=== PATIENT | female | born 1960 | race Caucasian/White ===

== ENCOUNTER 2019-05-01 01:03 | Day surgery (SDC) | payer OTHER, SELFPAY ==
[2019-04-23 14:24] VITALS: BMI 31.2
--- NOTE | 2019-05-01 10:49 | WPDANESEPPF ---
Anes - Initial Pre Proc Eval Procedure: Operation Date: 05/01/19 13:00 Proposed Procedures p Screening Colonoscopy - Magen Pinto MD Date/Time: 05/01/19 10:49 Surgeon: Magen Pinto MD Pre Op Diagnosis: Neoplasm Screening Patient Data Age: 58 Gender: F Height: 5 ft 3 in Weight: 80 kg Allergies Allergy/AdvReac Type Severity Reaction Status Date / Time PENICILLIN Allergy Mild UNKNOWN Uncoded 03/28/19 15:48 Home Medications Medication Instructions Recorded Confirmed Type conj estrogen-medroxyprogesterone 1 tablet PO DAILY 03/07/19 04/23/19 History 0.45 mg-1.5 mg tablet hydrochlorothiazide 12.5 mg tablet 12.5 mg PO DAILY 03/07/19 04/23/19 History nystatin 100,000 unit/gram topical 1 applic TOPICAL DAILY 03/07/19 04/23/19 History cream olmesartan 20 mg tablet 20 mg PO DAILY 03/07/19 04/23/19 History sodium,potassium,mag sulfates 17.5 480 ml PO .COMPLEX #354 ml 03/31/19 Rx gram-3.13 gram-1.6 gram oral soln Patient hx anesthesia problems: none Family hx anesthesia problems: none PMFSH Past Medical History Medical History GERD (gastroesophageal reflux disease) HLD (hyperlipidemia) Hypertension Mammogram normal (~2015) Shingles (~2005) Family History Family History Father No problems noted. Mother Cancer of kidney Sibling No problems noted. Social History Social History Smoking status: Never smoker Second hand tobacco smoke exposure: No Alcohol intake: never Substance use: never Anes - Eval Final PreProcedure Day of Procedure 05/01/19 10:49 Patient weight: obese Heart: regular rate and rhythm Lungs: clear to auscultation Airway: Mallampati scale class II Neurological: alert and oriented Last oral intake: >/= 8 hours ASA classification: II Emergent: no Anesthetic plan: proceed Anesthesia type and monitoring: general GIVS and standard monitoring Informed Consent: The patient's anesthetic plan and its attendant risks and benefits were discussed with the patient/family/POA. Questions were solicited and answers provided to the satisfaction of the patient/family/POA.
[2019-05-01 11:45] VITALS: BP 147/80; RESP 16; TEMP 36.6; O2SAT 100; BMI 32.1
[2019-05-01] MEDS: LACTATED RINGERS 1,000 ML 150 ML IV CONT (12:05)
--- NOTE | 2019-05-01 13:33 | PM.HPGS ---
History of Present Illness History of Present Illness Consent: Risks, benefits, and alternatives have been discussed and questions answered. Patient agrees to proceed with procedure. Chief complaint: Neoplasm Screening Narrative: Talat Bills is a 58 year old female here for screening colonoscopy, first one. Review of Systems Constitutional: Constitutional: Denies headache(s) and Denies weakness Eyes: Eyes: Denies blurry vision ENT: Denies Normal hearing present, Denies headache(s) and Denies neck pain Cardiovascular: Cardiovascular: Denies chest pain and Denies dyspnea Respiratory: Respiratory: Denies dyspnea Gastrointestinal: Gastrointestinal: Reports no additional gastrointestinal complaints Genitourinary: Genitourinary: Denies dysuria Musculoskeletal: Musculoskeletal: Denies neck pain Integumentary/Breasts: Skin/Breast: Denies dry skin Neurologic: Reports Normal hearing present, Denies headache(s) and Denies weakness Psychiatric: Psychiatric: Denies anxiety Endocrine: Endocrine: Denies change in body appearance Hematologic/Lymphatic: Hematologic/Lymphatic: Denies easy bleeding Allergic/Immunologic: Allergic/Immunologic: Denies urticaria PMFSH Past Medical History Medical History GERD (gastroesophageal reflux disease) HLD (hyperlipidemia) Hypertension Mammogram normal (~2015) Shingles (~2005) Family History Family History Father No problems noted. Mother Cancer of kidney Sibling No problems noted. Social History Social History Smoking status: Never smoker Second hand tobacco smoke exposure: No Alcohol intake: never Substance use: never Meds Home Medications and Allergies Home Medications Medication Instructions Recorded Confirmed Type conj estrogen-medroxyprogesterone 1 tablet PO DAILY 03/07/19 05/01/19 History 0.45 mg-1.5 mg tablet hydrochlorothiazide 12.5 mg tablet 12.5 mg PO DAILY 03/07/19 05/01/19 History olmesartan 20 mg tablet 20 mg PO DAILY 03/07/19 05/01/19 History Allergies Allergy/AdvReac Type Severity Reaction Status Date / Time PENICILLIN Allergy Mild UNKNOWN Uncoded 05/01/19 11:41 Vital Signs Vital Signs - 24 hr 05/01/19 11:45 Temperature 97.8 F Respiratory Rate 16 Blood Pressure 147/80 H Pulse Oximetry 100 Exam Const: General: comfortable and no acute distress HENMT: Ears: hearing grossly impaired General nose exam: Normal nares present Eyes: General: appearance normal, both eyes and all related structures Neck: Neck: no JVD Resp: Auscultation: clear to auscultation bilaterally Cardio: Rate: regular rate Rhythm: regular rhythm GI: Inspection: non-distended GI Palp: Yes Soft to palpation Skin: General skin exam: normal color Neuro: General: gait normal Speech: normal speech Extrem: General: normal to inspection Psych: Mental Status: mental status grossly normal Assessment and Plan Assessment and plan (1) Colon cancer screening: Code(s): Z12.11 - Encounter for screening for malignant neoplasm of colon Status: Acute Assessment and Plan: will proceed with colonoscopy (2) Hypertension: Qualifiers: Hypertension type: essential hypertension Qualified Code(s): I10 - Essential (primary) hypertension Code(s): I10 - Essential (primary) hypertension Status: Acute
[2019-05-01 13:38] VITALS: BP 84/45; PULSE 68; RESP 23; O2SAT 100
[2019-05-01 13:48] VITALS: BP 103/52; PULSE 58; RESP 23; O2SAT 100
[2019-05-01 13:58] VITALS: BP 125/68; PULSE 56; RESP 22; O2SAT 100
== END 2019-05-01 14:20 | disposition home or self-care (01) ==
PROVIDERS: PCP Family Medicine; Visit Provider Internal Medicine Gastroenterology
PROC: 0DJD8ZZ Inspection of Lower Intestinal Tract, Via Natural or Artificial Opening Endoscopic (ICD-10-PCS; CPT 45378; principal; 2019-05-01 13:00)
DX: Z12.11 Encounter for screening for malignant neoplasm of colon (principal); K63.5 Polyp of colon; K64.8 Other hemorrhoids; I10 Essential (primary) hypertension; E78.5 Hyperlipidemia, unspecified; K21.9 Gastro-esophageal reflux disease without esophagitis; E66.9 Obesity, unspecified; Z68.32 Body mass index [BMI] 32.0-32.9, adult
CPT/HCPCS: 45380; 88305; J2704; J7120

== ENCOUNTER 2019-10-16 23:00 | Emergency (ER) | payer OTHER, SELFPAY ==
[2019-10-16 23:04] VITALS: BP 165/87; PULSE 70; RESP 14; TEMP 36.6; O2SAT 98
[2019-10-16] MEDS: methylPREDNISolone SOD SUCC 125 MG VIAL IV PUSH (23:42)
[2019-10-16] MEDS: FAMOTIDINE 20 MG/2 ML VIAL IV PUSH (23:43)
[2019-10-16] MEDS: diphenhydrAMINE HCl INJ 50 MG/ML VIAL 25 MG IV PUSH (23:43)
--- NOTE | 2019-10-17 00:26 | ED.ALLEREA ---
HPI - Allergic Reaction General Chief complaint: Allergic Reaction Stated complaint: allergic reaction Time Seen by Provider: 10/16/19 23:21 History of Present Illness HPI narrative: Patient is a 59-year-old female who presents ER with allergic reaction. Reports her eyes started to become puffy and red and she is developed rash to her cheeks and neck. She reports that she has chronic issues with dermatitis and occasionally needs steroids. Last reaction like this was 1 month ago. She is supposed to go to [facility] to get a more thorough work-up. She has no difficulty breathing or swallowing. She reports the skin feels like it is burning on her face. Related Data Home Medications Medication Instructions Recorded Confirmed conj estrogen-medroxyprogesterone 1 tablet PO DAILY 03/07/19 05/01/19 0.45 mg-1.5 mg tablet olmesartan 20 mg tablet 20 mg PO DAILY 03/07/19 05/01/19 Allergies Allergy/AdvReac Type Severity Reaction Status Date / Time Penicillins Allergy Unknown Unknown Verified 08/25/19 16:01 PENICILLIN Allergy Mild UNKNOWN Uncoded 07/04/19 11:21 Review of Systems Review of Systems: All systems reviewed & are unremarkable except as noted in HPI and below Constitutional: Constitutional: Denies chills, Denies fever(s) and Denies weakness ENT: Denies dysphagia, Denies nasal congestion and Denies sore throat Respiratory: Respiratory: Denies cough, Denies dyspnea and Denies wheezing Integumentary/Breasts: Skin/Breast: Reports pruritus, Reports erythema and Reports rash PMFSH Past Medical History Medical History (Updated 10/17/19 @ 01:09 by Thong Ochoa MD) Colon cancer screening GERD (gastroesophageal reflux disease) HLD (hyperlipidemia) Hypertension Mammogram normal (~2015) Normal colonoscopy (~2019) Shingles (~2005) Surgical History Surgical History (Updated 10/17/19 @ 00:28 by Thong Ochoa MD) History of cochlear implant Social History Social History Smoking status: Never smoker Second hand tobacco smoke exposure: No Alcohol intake: never Substance use: never Exam Narrative: Exam Narrative: GENERAL: Well-appearing, well-nourished, and in no acute distress. HEAD: Normocephalic, atraumatic. EYES: PERRL and EOMI. periorbital edema with erythema blanching extending down to the cheeks bilaterally. ENT: Mucous membranes moist. No edema to the lips or tongue. NECK: Supple. Red rash to the neck bilaterally extending into the skin folds and central neck. CHEST: Clear to auscultation. No respiratory distress. HEART: Regular rate and rhythm. Normal peripheral pulses. EXTREMITIES: Normal range of motion. No edema. NEURO: Alert and oriented x3. PSYCH: Normal mood and affect. Course Course Emergency Course: Improvement of redness and swelling with Benadryl/Pepcid/Solu-Medrol. Discharge home with same medications prescribed. Vital Signs Vital signs: Vital Signs Temperature 97.8 F 10/16/19 23:04 Pulse Rate 70 10/16/19 23:04 Respiratory Rate 14 10/16/19 23:04 Blood Pressure 165/87 H 10/16/19 23:04 Pulse Oximetry 98 10/16/19 23:04 Temperature 97.8 F 10/16/19 23:04 Pulse Rate 70 10/16/19 23:04 Respiratory Rate 14 10/16/19 23:04 Blood Pressure 165/87 H 10/16/19 23:04 Pulse Oximetry 98 10/16/19 23:04 Discharge Plan Discharge Clinical Impression: Allergic reaction Patient Disposition: Home, Self-Care Condition: Stable Instructions: General Allergic Reaction (ED) Additional Instructions: Return to the ER if he cannot breathe, you cannot swallow, you have chest pain or shortness of breath, you have additional concerns. Take Benadryl/Pepcid/steroids to help with your skin reaction. Prescriptions: New prednisone 50 mg tablet 50 mg PO DAILY Qty: 7 RF: 0 diphenhydramine HCl [Benadryl Allergy] 25 mg tablet 25 mg PO Q6H PRN (Reason: allergy symptoms) Qt
[2019-10-17 01:28] VITALS: BP 132/70; PULSE 88; RESP 18; O2SAT 98
== END 2019-10-17 01:29 | disposition home or self-care (01) ==
PROVIDERS: Emergency Provider Emergency Medicine; PCP Family Medicine
DX: T78.40XA Allergy, unspecified, initial encounter (principal); K21.9 Gastro-esophageal reflux disease without esophagitis; E78.5 Hyperlipidemia, unspecified; I10 Essential (primary) hypertension
CPT/HCPCS: 96374; 96375; 99284; J1200; J2930

== ENCOUNTER 2020-09-02 21:10 | Emergency (ER) | payer OTHER, SELFPAY ==
--- NOTE | ~2020-09-02 | CT_ITS ---
EXAMINATION: CT abdomen pelvis w con EXAM DATE: 09/03/2020 00:34 INDICATION: Low abdominal pain. TECHNIQUE: Spiral CT of the abdomen and pelvis was performed following intravenous injection of 100 m L Omnipaque 350. Axial, coronal and sagittal images of the abdomen and pelvis were reviewed. The do se-length product (DLP) for this examination was 334.34 mGy-cm. The exposure was tailored according to patient size (auto mA exposure control), and iterative reconstruction (ASIR) was used as additiona l dose reduction technique. Comparison is made to prior examination from 07/12/2017. FINDINGS: The liver, spleen, adrenal glands and pancreas are unremarkable. Gallbladder is unremarkab le. No biliary obstruction. Portal and splenic veins are patent. Kidneys enhance symmetrically. T here is no hydronephrosis. The uterus is unremarkable. There is a 2.2 cm right renal cyst. The otf dder is unremarkable. There is no retroperitoneal or pelvic lymphadenopathy. The appendix is normal. The stomach and small bowel are unremarkable. The colon is moderately diste nded with gas and also small amount of fluid. No colonic wall thickening or pneumatosis. No free in traperitoneal gas. The heart is normal in size. There are no pericardial or pleural effusions. Th e lung bases are unremarkable. The bones are unremarkable. IMPRESSION: Moderately distended colon with gas and small amount of fluid, nonspecific. Gastroenterit is? Reviewed, dictated and finalized at location A. IMPRESSION: Moderately distended colon with gas and small amount of fluid, nons pecific. Gastroenteritis?
[2020-09-02 21:47] VITALS: BP 99/83; PULSE 87; RESP 15; TEMP 37.1; O2SAT 99
[2020-09-02 22:04] LABS: Hematocrit 43.5 % (37.0-47.0); Hemoglobin 14.6 g/dL (12.0-15.0); Mean Corpuscular HGB Conc 33.6 g/dl (32-36); Mean Corpuscular Hemoglobin 30.9 pg (26-34); Mean Corpuscular Volume 92.2 fl (80-100); Mean Platelet Volume 11.7 fl (7.4-10.4); Platelet Count Result 171 k/mm3 (150-375); Red Blood Count 4.72 M/mm3 (4.2-5.4); Red Cell Distribution Width 11.9 % (11.5-14.5); White Blood Count 11.7 K/mm3 (4.5-10.0)
[2020-09-02 22:17] LABS: Alanine Aminotransferase 22 U/L (4-35); Albumin Level 3.8 g/dL (3.5-5.1); Alkaline Phosphatase 87 U/L (38-126); Anion Gap 11 mmol/L (8-16); Aspartate Amino Transferase 29 U/L (14-36); Bilirubin,Total 0.5 mg/dL (0.2-1.3); Blood Urea Nitrogen 13 mg/dL (7-17); Calcium 8.7 mg/dL (8.4-10.2); Carbon Dioxide 18 mmol/L (22-30); Chloride 111 mmol/L (98-107); Estimated CRCL calculation 86 ml/min; Estimated Glomerular Filt Rate > 60; Glucose 126 mg/dL (65-105); Lipase 48 U/L (23-300); Potassium 3.6 mmol/L (3.4-5.0); Sodium 140 mmol/L (137-145)
[2020-09-02 22:34] LABS: Band Neutrophils Percent 8 % (0-6); Lymphocytes Absolute Manual 0.46 K/mm3 (1.1-4.5); Monocytes Absolute Manual 0.81 K/mm3 (0.1-0.90); Monocytes Percent Manual 7 % (3-9); Neutrophils Absolute Manual 10.41 K/mm3 (1.7-7.2); Neutrophils Percent Manual 81 % (46-73); Platelet Estimate Adequate (Adequate); Total Cells Counted 100
[2020-09-02 23:41] VITALS: BP 131/82; PULSE 74; RESP 18; O2SAT 97
[2020-09-02] MEDS: LACTATED RINGERS 1,000 ML 999 ML IV CONT (23:44)
--- NOTE | 2020-09-03 00:07 | ED.ABDPAIN ---
HPI - Abdominal Pain General Chief Complaint: Abdominal Pain Stated Complaint: dehydrated/ n/v/d Time Seen by Provider: 09/02/20 23:50 Source: patient and RN notes reviewed Mode of arrival: ambulatory Limitations: no limitations History of Present Illness HPI narrative: This is a 59 year old female who presents for evaluation of dehydration and diarrhea. She states she developed intermittent lower abdominal cramping on Sunday. She developed multiple episodes of nonbloody watery diarrhea on Sunday, and she states today she feels like she needs to have a bowel movement but she is only passing water. She has nausea but no vomiting or fever. She thinks her symptoms may be due to unwashed spinach that she ate. She denies associated cough or sob. Related Data Home Medications Medication Instructions Recorded Confirmed conj estrogen-medroxyprogesterone 1 tablet PO DAILY 03/07/19 05/01/19 0.45 mg-1.5 mg tablet Allergies Allergy/AdvReac Type Severity Reaction Status Date / Time Penicillins Allergy Unknown Unknown Verified 10/22/19 15:21 PENICILLIN Allergy Mild UNKNOWN Uncoded 07/04/19 11:21 Review of Systems Review of Systems: All systems reviewed & are unremarkable except as noted in HPI and below PMFSH Past Medical History Medical History (Updated 09/03/20 @ 02:24 by Marie Rogel MD) Colon cancer screening GERD (gastroesophageal reflux disease) HLD (hyperlipidemia) Hypertension Mammogram normal (~2015) Normal colonoscopy (~2019) Shingles (~2005) Surgical History Surgical History History of cochlear implant Family History Family History Father No problems noted. Mother Cancer of kidney Sibling No problems noted. Father Patient's father is in good health Sibling Patient's sister is in good health Mother Family history of malignant neoplasm of kidney, Onset Age: 57 Social History Social History Smoking status: Never smoker Second hand tobacco smoke exposure: No Alcohol intake: never Substance use: never Gender identity (if verbalized by the patient): Female Exam Const: General: alert Orientation/consciousness: patient oriented x3 Other: anxious, hyperventilating HENMT: Head: normocephalic and atraumatic Face and sinus: face symmetric Mouth: Yes Normal oral and palatal mucosa present, Yes lip normal, Yes oropharynx normal and Yes moist mucous membranes Resp: Effort & Inspection: retractions and tachypneic (hyperventilating) Auscultation: clear to auscultation bilaterally Cardio: Rate: regular rate Rhythm: regular rhythm Heart sounds: no murmurs GI: GI Palp: Yes Soft to palpation, Yes Tenderness to palpation present (GI) (Diffuse) and No Guarding due to palpation present (GI) Auscultation: Hypoactive bowel sounds present Skin: General skin exam: normal color Rashes: no rashes Neuro: General: patient oriented x3, moves all extremities and CN's II-XI intact bilaterally Psych: Mental Status: mental status grossly normal Affect: normal affect Course Reevaluation(s) Reevaluation #1: Patient is extremely anxious and agitated . She states she has been here too long and she is ready to go home. She has IVF fluid going. Date: 09/03/20 Time: 02:20 Vital Signs Vital signs: Vital Signs Temperature 98.8 F 09/02/20 21:47 Pulse Rate 87 09/02/20 21:47 Respiratory Rate 15 09/02/20 21:47 Blood Pressure 99/83 L 09/02/20 21:47 Pulse Oximetry 99 09/02/20 21:47 Temperature 98.8 F 09/02/20 21:47 Pulse Rate 78 09/03/20 02:25 Respiratory Rate 18 09/03/20 02:25 Blood Pressure 121/72 09/03/20 02:25 Pulse Oximetry 97 09/02/20 23:41 MDM - Abdominal Pain Lab Data Attestation: I reviewed the patient's lab results.
[2020-09-03 01:28] LABS: Add Urine Microscopic? YES; Appearance Urine Clear (Clear); Bilirubin Urine Negative (Negative); Blood Urine Negative (Negative); Color Urine Yellow (Yellow); Glucose Urine UA Negative (Negative); Ketones Urine Negative (Negative); Leukocyte Esterase Ur Trace LEU/UL (Negative); Mucus Urine Rare /lpf; Nitrate Urine Negative (Negative); Protein Urine Negative (Negative); RBC Urine 0-2 /hpf (0-2); Squamous Epithelial Cell Urine Occasional /hpf (Few); Urobilinogen Urine Negative mg/dL (<2.0)
[2020-09-03 01:29] LABS: Lactic Acid Reflex 2.9 mmol/L (0.7-2.1)
[2020-09-03] MEDS: LACTATED RINGERS 1,000 ML 999 ML IV CONT (01:36)
[2020-09-03 01:55] LABS: Specific Grav Ur 1.042 (1.001-1.035)
[2020-09-03 02:25] VITALS: BP 121/72; PULSE 78; RESP 18
[2020-09-03 04:16] LABS: Reflex Lactic Acid Yes or No Add Lactic
== END 2020-09-03 02:43 | disposition home or self-care (01) ==
PROVIDERS: Family Medicine; Emergency Provider General Practice; PCP Family Medicine
DX: R19.7 Diarrhea, unspecified (principal); E86.0 Dehydration; K21.9 Gastro-esophageal reflux disease without esophagitis; E78.5 Hyperlipidemia, unspecified; I10 Essential (primary) hypertension
CPT/HCPCS: 36415; 74177; 80053; 81001; 83605; 83690; 85025; 96361; 96365; 99284; J0131; J7120; Q9967